=== PATIENT | male | born 1960 | race Two or more races ===

== ENCOUNTER 2020-06-23 08:58 | Emergency (ER) | payer MEDICAID, OTHER ==
[~2020-06-23] VITALS: Ht 170.2 cm; Wt 90.7 kg
[2020-06-23 09:06] VITALS: BP 144/78
[2020-06-23] MEDS ORDERED: diphenhdrAMINE HCL 25 MG CAP PO ONE (10:00)
[2020-06-23] MEDS ORDERED: methylPREDNISolone SOD SUCC 125 MG/2 ML VL IM ONE (10:00)
== END 2020-06-23 10:36 | disposition home or self-care (01) ==
LOC: ER 08:58
DX: T78.40XA Allergy, unspecified, initial encounter (principal)
CPT/HCPCS: 96372; 99283; J2930

== ENCOUNTER 2020-12-03 16:29 | Inpatient (IN) | payer MEDICAID ==
[~2020-12-03] VITALS: Ht 172.7 cm; Wt 99.4 kg
[2020-12-03] MEDS ORDERED: ASPirin 81 mg TAB PO ONE (17:30)
[2020-12-03] MEDS ORDERED: FAMOTIDINE 20 MG TAB PO ONE (17:30)
[2020-12-03 17:58] LABS: Basophils # (auto) 0 10 ^3/uL (0-0.2); Basophils % (auto) 0.5 % (0.0-2.0); Eosinophils # (auto) 0.2 10 ^3/uL (0-0.8); Eosinophils % (auto) 2.8 % (0.0-7.0); Hematocrit 43.5 % (41.0-53.0); Hemoglobin 14.8 g/dL (13.5-17.5); Lymphocytes % (auto) 29.4 % (10.0-50.0); Mean Corpuscular Hemoglobin 30.4 pg (28.0-32.0); Mean Corpuscular Volume 89.7 fL (80.0-100.0); Monocytes # (auto) 0.9 10 ^3/uL (0-1.3); Monocytes % (auto) 12.8 % (0.0-12.0); Neutrophils # (auto) 3.7 10 ^3/uL (1.6-8.6); Neutrophils % (auto) 54.5 % (37.0-80.0); Platelet Count (auto) 185 10^3/uL (140-450); Red Blood Cells 4.85 10^6/uL (4.5-5.90); Red Cell Distribution Width 13.9 % (11.8-14.3); White Blood Cell 6.7 10^3/uL (4.4-10.8)
[2020-12-03 18:13] LABS: Albumin 3.5 g/dL (3.4-5.0); BUN/Creatinine Ratio 21.4; Calcium 8.8 mg/dL (8.5-10.1); Magnesium 2.4 mg/dL (1.6-2.6); Potassium 4.1 mmol/L (3.5-5.1)
[2020-12-03 18:21] LABS: Bilirubin, Total 0.2 mg/dL (0.2-1.0); Total Protein 7.6 g/dL (6.4-8.2)
[2020-12-03 18:24] LABS: INR 0.99 (0.9-1.15)
[2020-12-03] MEDS ORDERED: NITROGLYCERIN 0.4 MG SL TAB SL ONE (18:30)
[2020-12-03] MEDS ORDERED: DOCUSATE SOD 100 MG CAP PO PRN (23:45)
[2020-12-03] MEDS ORDERED: ACETAMINOPHEN 325 MG TAB PO PRN (23:45)
[2020-12-03] MEDS ORDERED: hydrALAZINE HCL 20 MG/ML VL IV PRN (23:45)
[2020-12-03] MEDS ORDERED: NITROGLYCERIN 0.4 MG SL TAB SL PRN (23:45)
[2020-12-03] MEDS ORDERED: MORPHINE SULFATE 4 MG/ML SYR/VIAL IV PRN (23:45)
[2020-12-03] MEDS ORDERED: HYDROcodone-ACET 5/325MG TAB PO PRN (23:45)
[2020-12-03] MEDS ORDERED: MORPHINE SULF INJ 2 MG/ML SYRINGE 1ML IV PRN (23:45)
[2020-12-03] MEDS ORDERED: ONDANSETRON HCL 4 MG/2 ML VIAL IV PRN (23:45)
[2020-12-04] MEDS: SODIUM CHLOR 0.9% PF (SALINE LOCK) 10ML VIAL/SYR IV SCH ×3 (05:28→22:00)
[2020-12-04 06:09] LABS: Basophils # (auto) 0 10 ^3/uL (0-0.2); Basophils % (auto) 0.7 % (0.0-2.0); Eosinophils # (auto) 0.2 10 ^3/uL (0-0.8); Eosinophils % (auto) 3.3 % (0.0-7.0); Hematocrit 41.2 % (41.0-53.0); Hemoglobin 14.5 g/dL (13.5-17.5); Lymphocytes # (auto) 1.4 10 ^3/uL (0.4-5.4); Lymphocytes % (auto) 26.4 % (10.0-50.0); Mean Corpuscular Hemoglobin 31.4 pg (28.0-32.0); Mean Corpuscular Hgb Conc. 35.3 g/dL (32.0-36.0); Mean Corpuscular Volume 88.8 fL (80.0-100.0); Monocytes # (auto) 0.8 10 ^3/uL (0-1.3); Monocytes % (auto) 14.3 % (0.0-12.0); Neutrophils # (auto) 2.9 10 ^3/uL (1.6-8.6); Neutrophils % (auto) 55.3 % (37.0-80.0); Nucleated Red Blood Cells % 0.1 %; Platelet Count (auto) 172 10^3/uL (140-450); Red Blood Cells 4.63 10^6/uL (4.5-5.90); Red Cell Distribution Width 14.3 % (11.8-14.3); White Blood Cell 5.2 10^3/uL (4.4-10.8)
[2020-12-04 06:24] LABS: Potassium 3.6 mmol/L (3.5-5.1)
[2020-12-04 06:40] LABS: Albumin 3.3 g/dL (3.4-5.0); BUN/Creatinine Ratio 19.2; Bilirubin, Total 0.4 mg/dL (0.2-1.0); Calcium 8.6 mg/dL (8.5-10.1); Total Protein 7.1 g/dL (6.4-8.2)
[2020-12-04] MEDS ORDERED: MORPHINE SULF INJ 2 MG/ML SYRINGE 1ML IV PRN (09:30)
[2020-12-04] MEDS ORDERED: ZINC SULFATE 220mg CAP or TAB PO SCH (10:00)
[2020-12-04] MEDS ORDERED: ENOXAPARIN SOD 40 MG/0.4 ML SYRINGE SC SCH (10:00)
[2020-12-04] MEDS ORDERED: ASCORBIC ACID 500 MG TAB PO SCH (10:00)
[2020-12-04] MEDS ORDERED: CLOPIDOGREL BISULFATE 75 MG TAB PO SCH (10:00)
[2020-12-04] MEDS: ASPirin 81 mg TAB PO SCH (11:30)
[2020-12-04] MEDS: MULTIPLE VITAMIN TAB PO SCH (11:31)
[2020-12-04] MEDS: amLODIPine BESYLATE 5 MG TAB PO SCH (11:33)
[2020-12-04] MEDS: FAMOTIDINE (10MG/ML) 2ML VL IV SCH ×2 (11:35→22:00)
[2020-12-04] MEDS: ATORVASTATIN 20 MG TAB PO SCH (22:00)
[2020-12-04] MEDS: ENOXAPARIN SOD 40 MG/0.4 ML SYRINGE SC SCH (22:00)
[2020-12-05 05:12] LABS: Basophils # (auto) 0 10 ^3/uL (0-0.2); Basophils % (auto) 0.4 % (0.0-2.0); Eosinophils # (auto) 0.2 10 ^3/uL (0-0.8); Eosinophils % (auto) 2.7 % (0.0-7.0); Hematocrit 42.2 % (41.0-53.0); Hemoglobin 14.6 g/dL (13.5-17.5); Lymphocytes # (auto) 1.7 10 ^3/uL (0.4-5.4); Lymphocytes % (auto) 29.7 % (10.0-50.0); Mean Corpuscular Hemoglobin 30.8 pg (28.0-32.0); Mean Corpuscular Hgb Conc. 34.6 g/dL (32.0-36.0); Mean Corpuscular Volume 88.9 fL (80.0-100.0); Monocytes # (auto) 0.7 10 ^3/uL (0-1.3); Monocytes % (auto) 12.6 % (0.0-12.0); Neutrophils # (auto) 3.2 10 ^3/uL (1.6-8.6); Neutrophils % (auto) 54.6 % (37.0-80.0); Nucleated Red Blood Cells % 0.3 %; Platelet Count (auto) 178 10^3/uL (140-450); Red Blood Cells 4.74 10^6/uL (4.5-5.90); White Blood Cell 5.8 10^3/uL (4.4-10.8)
[2020-12-05 05:18] LABS: INR 1.01 (0.9-1.15); Partial Thromboplastin Time 30.8 sec (23.0-31.2)
[2020-12-05 05:24] LABS: Albumin 3.3 g/dL (3.4-5.0); Calcium 9.1 mg/dL (8.5-10.1)
[2020-12-05 05:27] LABS: Magnesium 2.4 mg/dL (1.6-2.6)
[2020-12-05 05:33] LABS: Bilirubin, Total 0.4 mg/dL (0.2-1.0); Phosphorus 4.4 mg/dL (2.5-4.90); Total Protein 6.8 g/dL (6.4-8.2)
[2020-12-05] MEDS: SODIUM CHLOR 0.9% PF (SALINE LOCK) 10ML VIAL/SYR IV SCH ×3 (06:15→22:22)
[2020-12-05] MEDS: ASPirin 81 mg TAB PO SCH (09:57)
[2020-12-05] MEDS: ENOXAPARIN SOD 40 MG/0.4 ML SYRINGE SC SCH ×2 (09:57→22:22)
[2020-12-05] MEDS: amLODIPine BESYLATE 5 MG TAB PO SCH (09:58)
[2020-12-05] MEDS: MULTIPLE VITAMIN TAB PO SCH (10:16)
[2020-12-05] MEDS: FAMOTIDINE (10MG/ML) 2ML VL IV SCH ×2 (10:23→22:21)
[2020-12-05 15:36] VITALS: BP 138/79
[2020-12-05] MEDS ORDERED: AMLO-489 PO (15:55)
[2020-12-05] MEDS ORDERED: DOCU-94 PO (15:55)
[2020-12-05] MEDS ORDERED: CLOP75TA70 PO (15:55)
[2020-12-05] MEDS ORDERED: HYDR50TA15 PO (15:55)
[2020-12-05] MEDS ORDERED: ESCI10TA PO (15:55)
[2020-12-05] MEDS ORDERED: LOSA-69 PO (15:55)
[2020-12-05] MEDS ORDERED: ATOR40TA52 PO (15:55)
[2020-12-05 22:00] VITALS: BP 141/75
[2020-12-05] MEDS: ATORVASTATIN 20 MG TAB PO SCH (22:22)
[2020-12-06 05:00] VITALS: BP 129/73
[2020-12-06 06:59] LABS: Basophils # (auto) 0 10 ^3/uL (0-0.2); Basophils % (auto) 0.5 % (0.0-2.0); Eosinophils # (auto) 0.1 10 ^3/uL (0-0.8); Eosinophils % (auto) 2.3 % (0.0-7.0); Hematocrit 39.9 % (41.0-53.0); Hemoglobin 13.8 g/dL (13.5-17.5); Lymphocytes # (auto) 1.6 10 ^3/uL (0.4-5.4); Lymphocytes % (auto) 26.6 % (10.0-50.0); Mean Corpuscular Hemoglobin 30.4 pg (28.0-32.0); Mean Corpuscular Hgb Conc. 34.5 g/dL (32.0-36.0); Mean Corpuscular Volume 88.1 fL (80.0-100.0); Monocytes # (auto) 0.7 10 ^3/uL (0-1.3); Monocytes % (auto) 12.1 % (0.0-12.0); Neutrophils # (auto) 3.6 10 ^3/uL (1.6-8.6); Neutrophils % (auto) 58.5 % (37.0-80.0); Nucleated Red Blood Cells % 0.1 %; Platelet Count (auto) 176 10^3/uL (140-450); Red Blood Cells 4.53 10^6/uL (4.5-5.90); Red Cell Distribution Width 13.5 % (11.8-14.3); White Blood Cell 6.1 10^3/uL (4.4-10.8)
[2020-12-06 07:08] LABS: Potassium 4.1 mmol/L (3.5-5.1)
[2020-12-06 07:20] LABS: BUN/Creatinine Ratio 18.4; Calcium 8.5 mg/dL (8.5-10.1)
[2020-12-06 08:00] VITALS: BP_SYST 123; BP_SYST 137; BP_DIAS 79; BP_DIAS 83
[2020-12-06] MEDS ORDERED: ADENOSINE 82 MG in GIVE UN-DILUTED 0 ML IV STA (08:18)
[2020-12-06 08:30] VITALS: BP 135/71
[2020-12-06] MEDS: ENOXAPARIN SOD 40 MG/0.4 ML SYRINGE SC SCH ×2 (10:00→22:00)
[2020-12-06] MEDS: MULTIPLE VITAMIN TAB PO SCH (10:00)
[2020-12-06] MEDS: ASPirin 81 mg TAB PO SCH (10:00)
[2020-12-06] MEDS: FAMOTIDINE (10MG/ML) 2ML VL IV SCH ×2 (10:00→22:00)
[2020-12-06] MEDS: amLODIPine BESYLATE 5 MG TAB PO SCH (10:00)
[2020-12-06] MEDS: SODIUM CHLOR 0.9% PF (SALINE LOCK) 10ML VIAL/SYR IV SCH ×2 (14:00→22:00)
[2020-12-06 16:00] VITALS: BP 128/74
[2020-12-06 16:37] LABS: Urine WBC None Seen /hpf (0 - 3)
[2020-12-06 17:21] LABS: Urine Bacteria NONE SEEN /hpf (None Seen); Urine Blood Negative /uL (Negative); Urine Mucus FEW (None Seen)
[2020-12-06 22:00] VITALS: BP 152/76
[2020-12-06] MEDS: ATORVASTATIN 20 MG TAB PO SCH (22:00)
[2020-12-07 05:00] VITALS: BP 133/66
[2020-12-07] MEDS: SODIUM CHLOR 0.9% PF (SALINE LOCK) 10ML VIAL/SYR IV SCH ×3 (05:34→22:21)
[2020-12-07 05:44] LABS: Basophils # (auto) 0 10 ^3/uL (0-0.2); Basophils % (auto) 0.6 % (0.0-2.0); Eosinophils # (auto) 0.1 10 ^3/uL (0-0.8); Eosinophils % (auto) 2.1 % (0.0-7.0); Hematocrit 40.7 % (41.0-53.0); Lymphocytes # (auto) 1.4 10 ^3/uL (0.4-5.4); Lymphocytes % (auto) 23.6 % (10.0-50.0); Mean Corpuscular Hemoglobin 30.5 pg (28.0-32.0); Mean Corpuscular Hgb Conc. 34.3 g/dL (32.0-36.0); Mean Corpuscular Volume 88.7 fL (80.0-100.0); Monocytes # (auto) 0.7 10 ^3/uL (0-1.3); Monocytes % (auto) 11.8 % (0.0-12.0); Neutrophils # (auto) 3.7 10 ^3/uL (1.6-8.6); Neutrophils % (auto) 61.9 % (37.0-80.0); Nucleated Red Blood Cells % 0.1 %; Platelet Count (auto) 161 10^3/uL (140-450); Red Blood Cells 4.59 10^6/uL (4.5-5.90); Red Cell Distribution Width 13.8 % (11.8-14.3)
[2020-12-07 06:06] LABS: BUN/Creatinine Ratio 19.3; Calcium 8.6 mg/dL (8.5-10.1); Potassium 4.2 mmol/L (3.5-5.1)
[2020-12-07] MEDS ORDERED: IODIXANOL 320MG/ML 100ML BTL IV ONE (07:48)
[2020-12-07] MEDS ORDERED: LIDOCAINE 2%HCL (LOCAL ANESTH.) INJ 20ML MDV ONE (07:48)
[2020-12-07] MEDS ORDERED: ANGIOMAX 250 MG VIAL IV ONE (08:06)
[2020-12-07] MEDS ORDERED: SODIUM CHL 0.9% 0 ML ONE (08:07)
[2020-12-07] MEDS ORDERED: fentaNYL CITRATE 100 MCG/2 ML VL ONE (08:07)
[2020-12-07] MEDS ORDERED: MIDAZOLAM HCL 1MG/1ML-2 ML VIAL ONE (08:07)
[2020-12-07] MEDS ORDERED: VERAPAMIL 2.5MG/ML INJ 2ML VIAL IV ONE (08:07)
[2020-12-07 08:26] VITALS: BP 125/80
[2020-12-07] MEDS ORDERED: HEPARIN SODIUM (PORCINE) 5000 UNITS/ML 1ML VIAL ONE (08:30)
[2020-12-07 10:00] VITALS: BP 137/79
[2020-12-07] MEDS: ENOXAPARIN SOD 40 MG/0.4 ML SYRINGE SC SCH ×2 (10:00→22:00)
[2020-12-07] MEDS: amLODIPine BESYLATE 5 MG TAB PO SCH (11:38)
[2020-12-07] MEDS: ASPirin 81 mg TAB PO SCH (11:38)
[2020-12-07] MEDS: MULTIPLE VITAMIN TAB PO SCH (11:38)
[2020-12-07] MEDS: FAMOTIDINE (10MG/ML) 2ML VL IV SCH ×2 (11:38→22:21)
[2020-12-07 12:45] VITALS: BP 132/79
[2020-12-07 15:50] VITALS: BP 147/69
[2020-12-07 21:21] VITALS: BP 129/66
[2020-12-07] MEDS: ATORVASTATIN 20 MG TAB PO SCH (22:19)
[2020-12-08 05:00] VITALS: BP 120/70
[2020-12-08] MEDS: SODIUM CHLOR 0.9% PF (SALINE LOCK) 10ML VIAL/SYR IV SCH ×2 (06:00→14:11)
[2020-12-08 08:00] VITALS: BP 127/76
[2020-12-08] MEDS: MULTIPLE VITAMIN TAB PO SCH (09:31)
[2020-12-08] MEDS: ENOXAPARIN SOD 40 MG/0.4 ML SYRINGE SC SCH (09:32)
[2020-12-08] MEDS: ASPirin 81 mg TAB PO SCH (09:32)
[2020-12-08] MEDS: FAMOTIDINE (10MG/ML) 2ML VL IV SCH (09:32)
[2020-12-08] MEDS: amLODIPine BESYLATE 5 MG TAB PO SCH (09:32)
== END 2020-12-08 14:37 | disposition home or self-care (01) | DRG 190 ==
LOC: ER 16:29 → TELE 23:48 → TELE-CENTR 12-05 14:49
PROVIDERS: ADMIT Nurse Practitioner Family; ATTEND Family Medicine
PROC: 4A023N7 Measurement of Cardiac Sampling and Pressure, Left Heart, Percutaneous Approach (ICD-10-PCS; principal; 2020-12-07)
PROC: B2111ZZ Fluoroscopy of Multiple Coronary Arteries using Low Osmolar Contrast (ICD-10-PCS; 2020-12-07)
PROC: B2151ZZ Fluoroscopy of Left Heart using Low Osmolar Contrast (ICD-10-PCS; 2020-12-07)
DX: I21.4 Non-ST elevation (NSTEMI) myocardial infarction (principal); E66.9 Obesity, unspecified; E44.1 Mild protein-calorie malnutrition; E78.5 Hyperlipidemia, unspecified; I11.0 Hypertensive heart disease with heart failure; I25.10 Atherosclerotic heart disease of native coronary artery without angina pectoris; I70.8 Atherosclerosis of other arteries; N50.819 Testicular pain, unspecified; N50.82 Scrotal pain; R73.03 Prediabetes; Z79.02 Long term (current) use of antithrombotics/antiplatelets; Z82.49 Family history of ischemic heart disease and other diseases of the circulatory system; Z87.891 Personal history of nicotine dependence; Z98.61 Coronary angioplasty status; Z68.33 Body mass index [BMI] 33.0-33.9, adult; Z20.822 Contact with and (suspected) exposure to COVID-19; I50.33 Acute on chronic diastolic (congestive) heart failure
CPT/HCPCS: 36415; 71045; 74176; 76775; 76870; 78452; 80048; 80053; 80061; 81001; 83735; 83880; 84100; 84443; 84484; 85025; 85610; 85730; 87086; 87088; 87186; 87426; 93005; 93017; 93306; 93458; 99152; G0378; J0153; J2250; J3490; Q9967

== ENCOUNTER 2020-12-21 15:07 | Inpatient (IN) | payer MEDICAID ==
[~2020-12-21] VITALS: Ht 172.7 cm; Wt 82.9 kg
[~2020-12-21 15:07] MED LIST: AMLO-489 PO; ATOR40TA52 PO; CLOP75TA70 PO; DOCU-94 PO; ESCI10TA PO; HYDR50TA15 PO; LOSA-69 PO
[2020-12-21] MEDS ORDERED: ASPirin 81 mg TAB PO ONE (15:30)
[2020-12-21 16:32] LABS: Basophils # (auto) 0.1 10 ^3/uL (0-0.2); Basophils % (auto) 0.9 % (0.0-2.0); Eosinophils # (auto) 0.1 10 ^3/uL (0-0.8); Eosinophils % (auto) 1.8 % (0.0-7.0); Hematocrit 43.3 % (41.0-53.0); Hemoglobin 14.9 g/dL (13.5-17.5); Lymphocytes # (auto) 1.4 10 ^3/uL (0.4-5.4); Lymphocytes % (auto) 22.6 % (10.0-50.0); Mean Corpuscular Hemoglobin 30.7 pg (28.0-32.0); Mean Corpuscular Hgb Conc. 34.5 g/dL (32.0-36.0); Mean Corpuscular Volume 89.1 fL (80.0-100.0); Monocytes # (auto) 0.7 10 ^3/uL (0-1.3); Monocytes % (auto) 11.5 % (0.0-12.0); Neutrophils # (auto) 3.8 10 ^3/uL (1.6-8.6); Neutrophils % (auto) 63.2 % (37.0-80.0); Nucleated Red Blood Cells % 0.1 %; Platelet Count (auto) 188 10^3/uL (140-450); Red Blood Cells 4.86 10^6/uL (4.5-5.90); Red Cell Distribution Width 14.2 % (11.8-14.3)
[2020-12-21 16:59] LABS: Albumin 3.7 g/dL (3.4-5.0); Calcium 9.1 mg/dL (8.5-10.1); Potassium 3.5 mmol/L (3.5-5.1)
[2020-12-21 17:04] LABS: BUN/Creatinine Ratio 23.8; Bilirubin, Total 0.4 mg/dL (0.2-1.0); Total Protein 7.7 g/dL (6.4-8.2)
[2020-12-21] MEDS ORDERED: ONDANSETRON HCL 4 MG/2 ML VIAL IV PRN (19:00)
[2020-12-21] MEDS ORDERED: ISOSORBIDE MONONITRATE ER 60 MG TAB PO ONE (19:00)
[2020-12-21] MEDS ORDERED: ACETAMINOPHEN 500 MG TAB PO PRN (19:00)
[2020-12-21] MEDS ORDERED: SODIUM CHLORIDE 0.9% 1,000 ML IV ONE (19:00)
[2020-12-21] MEDS ORDERED: HYDROcodone-ACET 5/325MG TAB PO PRN (19:00)
[2020-12-21] MEDS ORDERED: NITROGLYCERIN 0.4 MG SL TAB SL PRN (19:00)
[2020-12-21] MEDS ORDERED: MORPHINE SULF INJ 2 MG/ML SYRINGE 1ML IV PRN ×2 (19:00)
[2020-12-21] MEDS ORDERED: IOHEXOL 300 MG/ML 100ML BOTTLE IJ ONE (19:02)
[2020-12-22] VITALS (7 sets, daily range): BP systolic 116–130; BP diastolic 60–72
[2020-12-22] MEDS ORDERED: HYDR25TA4 PO (06:10)
[2020-12-22 07:23] LABS: Urine Bacteria NONE SEEN /hpf (None Seen); Urine Blood Negative /uL (Negative); Urine Specific Gravity 1.026 (1.001-1.035); Urine WBC <1 /hpf (0 - 3)
[2020-12-22] MEDS: LOSARTAN POTASSIUM 50 MG TAB PO SCH (09:58)
[2020-12-22] MEDS: CLOPIDOGREL BISULFATE 75 MG TAB PO SCH (09:59)
[2020-12-22] MEDS: ISOSORBIDE MONONITRATE ER 60 MG TAB PO SCH (09:59)
[2020-12-22] MEDS: FAMOTIDINE 20 MG TAB PO SCH (10:00)
[2020-12-22] MEDS: CITALOPRAM HYDROBR 20 MG TAB PO SCH (10:00)
[2020-12-22] MEDS ORDERED: RANOLAZINE ER 500 MG TAB PO ONE (10:30)
[2020-12-22] MEDS ORDERED: ASPirin 81 mg TAB PO ONE (10:30)
[2020-12-22] MEDS ORDERED: FUROSEMIDE 20 MG/2 ML VIAL IV ONE (11:15)
[2020-12-22 11:24] LABS: Alcohol, Urine < 3.0 mg/dL (0-10); Amphetamine Screen, Urine NEGATIVE (NEGATIVE); Barbiturate Scree,Urine NEGATIVE (NEGATIVE); Benzodiazephine Screen, Urine NEGATIVE (NEGATIVE); Cannabinoid Screen, Urine NEGATIVE (NEGATIVE); Cocaine Screen, Urine NEGATIVE (NEGATIVE); Opiate Scree,Urine NEGATIVE (NEGATIVE); Phencyclidine Screen, Urine NEGATIVE (NEGATIVE)
[2020-12-22] MEDS: RANOLAZINE ER 500 MG TAB PO SCH (21:40)
[2020-12-22] MEDS ORDERED: ATORVASTATIN 20 MG TAB PO SCH (22:00)
[2020-12-23 05:00] VITALS: BP 123/70
[2020-12-23 07:05] LABS: BUN/Creatinine Ratio 17.3; Calcium 8.9 mg/dL (8.5-10.1); Magnesium 2.3 mg/dL (1.6-2.6); Potassium 4.3 mmol/L (3.5-5.1)
[2020-12-23 08:30] VITALS: BP 135/78
[2020-12-23] MEDS ORDERED: FUROSEMIDE 20 MG/2 ML VIAL IV SCH (10:00)
[2020-12-23] MEDS ORDERED: ASPirin 81 mg TAB PO SCH (10:00)
[2020-12-23] MEDS: CLOPIDOGREL BISULFATE 75 MG TAB PO SCH (10:01)
[2020-12-23] MEDS: CITALOPRAM HYDROBR 20 MG TAB PO SCH (10:01)
[2020-12-23] MEDS: LOSARTAN POTASSIUM 50 MG TAB PO SCH (10:01)
[2020-12-23] MEDS: FAMOTIDINE 20 MG TAB PO SCH (10:01)
[2020-12-23] MEDS: RANOLAZINE ER 500 MG TAB PO SCH (10:01)
[2020-12-23] MEDS: ISOSORBIDE MONONITRATE ER 60 MG TAB PO SCH (10:02)
[2020-12-23 10:50] VITALS: BP 135/78
== END 2020-12-23 12:13 | disposition home or self-care (01) | DRG 190 ==
LOC: ER 15:07 → TELE 18:55 → TELE-CENTR 12-22 05:28
PROVIDERS: ADMIT Nurse Practitioner Acute Care; ATTEND Internal Medicine
DX: I25.119 Atherosclerotic heart disease of native coronary artery with unspecified angina pectoris (principal); I21.A1 Myocardial infarction type 2; E66.9 Obesity, unspecified; E78.5 Hyperlipidemia, unspecified; J98.11 Atelectasis; Z68.27 Body mass index [BMI] 27.0-27.9, adult; I11.9 Hypertensive heart disease without heart failure; I70.0 Atherosclerosis of aorta; Z20.822 Contact with and (suspected) exposure to COVID-19; Z79.02 Long term (current) use of antithrombotics/antiplatelets; Z79.899 Other long term (current) drug therapy; Z82.49 Family history of ischemic heart disease and other diseases of the circulatory system; Z98.61 Coronary angioplasty status
CPT/HCPCS: 36415; 71045; 71275; 80048; 80053; 80307; 81001; 83036; 83735; 83880; 84443; 84484; 85025; 87081; 87426; 96360; G0378

== ENCOUNTER 2025-03-05 20:37 | Inpatient (IN) | payer OTHER, BC, MEDICAID ==
[~2025-03-05] VITALS: Ht 172.7 cm; Wt 92.5 kg
[~2025-03-05 20:37] MED LIST changes: -AMLO-489 PO; +AMLO1TAB22 PO; +HYDR25TA4 PO; -HYDR50TA15 PO; +HYDR50TA47 PO; +LOSA-534 PO; -LOSA-69 PO
--- NOTE | 2025-03-05 21:38 | ED.PDOC ---
History of Present Illness HPI Comments 64-year-old male who came ER via EMS for high blood pressure. Patient has history of hypertension and dementia. History obtained from daughter, who thinks that patient has not been taking as prescribed his medications. Noted that his blood pressure was high at home, SBP 188 so she decided to bring patient the emergency room. Patient was given NTG while EN route. Upon arrival blood pressure was 174/86 mm Hg Chief Complaint: High Blood Pressure Time Seen by MD: 21:38 Primary Care Provider: ABILIO MORIN Reviewed Notes: Nurses Notes Allergies: Coded Allergies: No Known Drug Allergy (Verified Allergy, Unknown, 06/23/20) Home Meds Reported Medications Hydrochlorothiazide (Hydrochlorothiazide) 25 Mg Tab, 25 MG PO DAILY for 30 Days, MG 12/22/20 Docusate Sodium (Colace) 100 Mg Cap, 1 CAP PO BID, #30 CAP 12/05/20 Losartan Potassium (Losartan Potassium) 50 Mg Tab, 50 MG PO DAILY for 30 Days, MG 12/05/20 Hydralazine Hcl (Hydralazine Hcl) 50 Mg Tab, 50 MG PO TID for 30 Days, MG 12/05/20 Amlodipine Besylate (Amlodipine Besylate) 5 Mg Tab, 10 MG PO DAILY for 30 Days, MG 12/05/20 Escitalopram Oxalate (Lexapro) 10 Mg Tab, 1 TAB PO DAILY, #90 TAB 3 Refills 12/05/20 Atorvastatin Calcium (ATORVASTATIN CALCIUM) 40 Mg Tab, 1 TAB PO DAILY, #30 TAB 5 Refills 12/05/20 Clopidogrel Bisulfate (CLOPIDOGREL) 75 Mg Tab, 75 MG PO DAILY for 30 Days, MG 12/05/20 Information Source: Relative Mode of Arrival: EMS Severity: Moderate Timing: Hours Duration: Since onset Prehospital treatment: NTG Past Medical History PAST MEDICAL HISTORY: Dementia, HTN, OR Surgical History: Denies all surgeries Family History Family History: Unknown Social History Smoker: Non-Smoker Alcohol: Denies ETOH Use Drugs: Denies Drug Use Lives In: Home Unable to Obtain due to: Dementia Physical Exam General Appearance: No Apparent Distress, Normal HEENT: Normal ENT Inspection, Pharynx Normal, TMs Normal Neck: Full Range of Motion, Non-Tender, Normal, Normal Inspection Respiratory: Chest Non-Tender, Lungs Clear, No Accessory Muscle Use, No Respiratory Distress, Normal Breath Sounds Cardiovascular: No Edema, No JVD, No Murmur, No Gallop, Normal Peripheral Pulses, Regular Rate/Rhythm Breast Exam: Deferred Gastrointestinal: No Organomegaly, Non Tender, No Pulsatile Mass, Normal Bowel Sounds, Soft Genitalia: Deferred Pelvic: Deferred Rectal: Deferred Extremities: No calf tenderness, Normal capillary refill, Normal inspection, Normal range of motion, Non-tender, No pedal edema Musculoskeletal : Apperance: Normal Neurologic: Alert, interface analyst II-XII nml as Tested, No Motor Deficits, Normal Affect, Normal Mood, No Sensory Deficits Cerebellar Function: Normal Reflexes: Normal Skin: Dry, Normal Color, Warm Lymphatic: No Adenopathy Was a procedure done? Was a procedure done?: No Differential Dx Considerations may include: Anemia, electrolyte imbalance, medication noncompliance, hypertensive urgency, dementia X-Ray, Labs, Meds, VS Vital Signs Date Time Temp Pulse Resp B/P (MAP) Pulse Ox O2 Delivery O2 Flow Rate FiO2 03/05/25 21:41 96 03/05/25 21:29 98.0 74 14 159/76 (103) 94 98.0 03/05/25 20:40 76 03/05/25 20:37 97.6 46 20 174/82 (112) 97 97.6 Lab Test 03/05/25 22:40 03/05/25 21:37 03/05/25 21:30 Range/Units Troponin I High Sensitivity Pending 96 *H </=54 ng/L White Blood Count 6.3 4.4-10.8 10^3/uL Red Blood Count 4.83 4.5-5.90 10^6/uL Hemoglobin 15.0 13.5-17.5 g/dL Hematocrit 43.7 41.0-53.0 % Mean Corpuscular Volume 90.5 80.0-100.0 fL Mean Corpuscular Hemoglobin 31.0 28.0-32.0 pg Mean Corpuscular Hemoglobin Concent 34.3 32.0-36.0 g/dL Red Cell Distribution Width 14.2 11.8-14.3 % Platelet Count 171 140-450 10^3/uL Mean Platelet Volume 9.0 6.9-10.8 fL Neutrophils (%) (Auto) 65.0 37.0-80.0 % Lymphocytes (%) (Auto) 21.1 10.0-50.0 % Monocytes (%) (Auto) 10.0 0.0-12.0 % Eosinophils (%) (Auto) 3.4 0.0-7.0 % Basophils (%) (Auto) 0.5 0.0-2.0 % Neutrophils # (Auto) 4.1 1.6-8.6 10 ^3/uL Lymphocytes # (Auto) 1.3 0.4-5.4 10 ^3/uL Monocytes # (Auto) 0.6 0-1.3 10 ^3/uL Eosinophils # (Auto) 0.2 0-0.8 10 ^3/uL Basophils # (Auto) 0 0-0.2 10 ^3/uL Nucleated Red Blood Cells 0.1 % Sodium Level 138 136-145 mmol/L Potassium Level 3.9 3.5-5.1 mmol/L Chloride Level 104 98-107 mmol/L Carbon Dioxide Level 26 20-31 mmol/L Anion Gap 8 5-15 Blood Urea Nitrogen 17 9-23 mg/dL Creatinine 0.79 0.700-1.30 mg/dL Glomerular Filtration Rate Calc 100 >90 mL/min BUN/Creatinine Ratio 21.5 H 10.0-20.0 Serum Glucose 111 H 74-106 mg/dL Calcium Level 10.3 8.7-10.4 mg/dL Urine Color Colorless Yellow Urine Clarity Clear Clear Urine pH 5.5 5.0-9.0 Urine Specific [place] 1.014 1.001-1.035 Urine Protein Trace H Negative Urine Ketones Negative Negative Urine Blood Trace H Negative /uL Urine Nitrite Negative Negative Urine Bilirubin Negative Negative Urine Urobilinogen Normal Negative mg/dL Urine Leukocyte Esterase Negative Negative /uL Urine RBC 1 0 - 3 /hpf Urine Microscopic WBC < 1 0-3 /HPF Urine Squamous Epithelial Cells None seen <5 /hpf Urine Bacteria None seen None Seen /hpf Urine Glucose Normal Normal mg/dL Time of 1ST Reevaluation: 21:35 Reevaluation 1ST: Unchanged Patient Education/Counseling: Diagnosis, Treatment Family Education/Counseling: Diagnosis, Treatment Departure 1 Departure Time of Disposition: 23:27 (Patient presented with chest pain and hypertension that was concerning for possible STEMI, ACS, PE, Pneumonia, Muscle Strain, COPD, Dissection. Data: 1. I ordered and reviewed the result of at least 3 labs including a CBC, BMP, and Troponin. 2. I independently interpreted the following tests: EKG which shows sinus arrhythmia and Chest X-ray which shows benign chest.Risk:This patient has a high risk of morbidity due to further diagnostic testing or treatment and may suffer from an acute cardiac or respiratory disorder. Workup reveals concern for ACS and patient should be admitted for further workup and possible expert consultation. ) Impression: Primary Impression: Acute chest pain Additional Impressions: Hypertension Qualified Codes: I10 - Essential (primary) hypertension Hypertensive emergency Disposition: 09 ADMITTED INPATIENT Admit to: Med Surg Condition: Serious Critical Care Note Critical Care Time?: Yes (35 min-critical care time only) Critical care comment: Hypertensive urgency Authorized and Performed by: Dank Ritchie MD Total critical care time: Approximately 38 minutes Due to a high probability of clinically significant, life threatening deterioration, the patient required my highest level of preparedness to intervene emergently and I personally spent this critical care time directly and personally managing the patient. This critical care time included obtaining a history; examining the patient; pulse oximetry; ordering and review of studies; arranging urgent treatment with development of a management plan; evaluation of patient's response to treatment; frequent reassessment; and, discussions with other providers. This critical care time was performed to assess and manage the high probability of imminent, life-threatening deterioration that could result in multi-organ failure. It was exclusive of separately billable procedures and treating other patients and teaching time. Please see my other sections and the rest of the note for further information on patient assessment and treatment. Stability Stability form required: No Heart Score Heart Score: Heart Score Response (Comments) Value History Slightly Suspicious 0 EKG Repolarization Disturb 1 Age 45-64 1 Risk Factors >3 or Hx ASHD 2 Troponin 1-2 x's Normal limit 1 Total 5 I personally scribed for DANK RITCHIE MD ([email or web address]) on 03/05/25 at 21:38. Electronically submitted by Aj Dailey ([facility]). ADNK RITCHIE MD March 05, 2025 21:38
[2025-03-05 21:39] LABS: Urine Bacteria None Seen /hpf (None Seen)
[2025-03-05 22:01] LABS: Basophils # (auto) 0 10 ^3/uL (0-0.2); Basophils % (auto) 0.5 % (0.0-2.0); Chloride 104 mmol/L (98-107); Eosinophils # (auto) 0.2 10 ^3/uL (0-0.8); Eosinophils % (auto) 3.4 % (0.0-7.0); Hematocrit 43.7 % (41.0-53.0); Lymphocytes # (auto) 1.3 10 ^3/uL (0.4-5.4); Lymphocytes % (auto) 21.1 % (10.0-50.0); Mean Corpuscular Hgb Conc. 34.3 g/dL (32.0-36.0); Mean Corpuscular Volume 90.5 fL (80.0-100.0); Monocytes # (auto) 0.6 10 ^3/uL (0-1.3); Neutrophils # (auto) 4.1 10 ^3/uL (1.6-8.6); Nucleated Red Blood Cells % 0.1 %; Platelet Count (auto) 171 10^3/uL (140-450); Potassium 3.9 mmol/L (3.5-5.1); Red Blood Cells 4.83 10^6/uL (4.5-5.90); Red Cell Distribution Width 14.2 % (11.8-14.3); Sodium 138 mmol/L (136-145); White Blood Cell 6.3 10^3/uL (4.4-10.8)
[2025-03-05 22:02] LABS: Anion Gap 8 (5-15); Carbon Dioxide 26 mmol/L (20-31)
[2025-03-05 22:03] LABS: Calcium 10.3 mg/dL (8.7-10.4)
[2025-03-05 22:07] LABS: BUN/Creatinine Ratio 21.5 (10.0-20.0); Blood Urea Nitrogen 17 mg/dL (9-23)
--- NOTE | 2025-03-05 22:16 | DVH ---
CHEST RADIOGRAPH Indication: weakness Technique: Single frontal view of the chest was obtained Comparison: CHEST PORTABLE on DOS: 12/21/20 FINDINGS: Lines and Tubes: None Lungs: No focal consolidation. Pleura: No effusion. No pneumothorax. Cardiomediastinal contours: Unremarkable Bones: No acute osseous abnormality. IMPRESSION: 1. No acute cardiopulmonary disease.
[2025-03-05 22:19] LABS: Glucose 111 mg/dL (74-106)
[2025-03-05 22:32] LABS: Urine Blood TRACE /uL (Negative); Urine Clarity Clear (Clear); Urine Color Colorless (Yellow); Urine Protein, UAD TRACE (Negative); Urine Specific Gravity 1.014 (1.001-1.035); Urine Squamous Epithelial Cell None Seen /hpf (<5); Urine Urobilinogen Normal (Negative); Urine pH 5.5 (5.0-9.0)
[2025-03-05 22:37] LABS: Urine WBC < 1 /HPF (0-3)
[2025-03-05 23:00] VITALS: PULSE 82; RESP 14; O2SAT 96
[2025-03-05] MEDS: hydrALAZINE HCL 20 MG/ML VL IV ONE (23:43)
--- NOTE | 2025-03-06 00:41 | DVHHP2 ---
History of Present Illness Reason for Visit: Acute chest pain History of Present Illness The patient is a 64-year-old male with past medical history of ME, dementia, and hypertension who presented to [facility] ED for evaluation of elevated blood pressure. Daughter reports that patient has not been taking his medication as prescribed, noted elevated blood pressure at home with systolic blood pressure in the 180s. Patient was seen and evaluated in the ED, laboratory data shows WBC 6.3, platelets 171, sodium 138, potassium 3.9, BUN 17, creatinine 0.79, glucose 111, troponin 96 trending up to 100, blood pressure 174/86 trending down to 152/86, pulse 82, temperature 98.0 F, O2 saturation 96% on room air. Patient was given IV hydralazine 10 mg x 1, aspirin 325 mg p.o. x1, please see medication orders section in the computer. On my assessment, patient denied chest pain, no headache, no dizziness, no palpitations, no shortness of breath, no nausea, no vomiting, no fever, no chills. Patient was admitted for further evaluation and medical management. Past Medical History Dementia, HTN, ME Past Surgical History Denies all surgeries Family History Reviewed, noncontributory to the management of this case. Past Social History The patient lives at home, denies smoking, alcohol or illicit drugs abuse. Review of Systems Constitutional: No: Fever, Chills, Sweats, Weakness, Malaise, Other Eyes: No: Pain, Vision change, Conjunctivae inflammation, Eyelid inflammation, Other, Redness ENT: No: Ear pain, Ear discharge, Nose pain, Nose discharge, Nose congestion, Mouth pain, Mouth swelling, Throat pain, Throat swelling, Other Respiratory: No: Cough, Dry, Shortness of breath, SOB with excertion, Wheezing, Hemoptysis, Pleuritic Pain, Sputum, Wheezing, Other Cardiovascular: No: Chest Pain, Palpitations, Orthopnea, Paroxysmal Noc. Dyspnea, Edema, Lt Headedness, Other Gastrointestinal: No: Nausea, Vomiting, Abdominal Pain, Diarrhea, Constipation, Melena, Hematochezia, Other Genitourinary: No Dysuria, No Frequency, No Incontinence, No Hematuria, No Retention, No Other Musculoskeletal: No: other, neck pain, shoulder pain, arm pain, back pain, hand pain, leg pain, foot pain Skin: No: Rash, Lesions, Jaundice, Bruising, Other Neurological: No: Weakness, Numbness, Incoordination, Change in speech, Confusion, Seizures, Other Allergies: Coded Allergies: No Known Drug Allergy (Verified Allergy, Unknown, 06/23/20) Exam Vital Signs Vital Signs Date Time Temp Pulse Resp B/P (MAP) Pulse Ox O2 Delivery O2 Flow Rate FiO2 03/05/25 23:44 70 03/05/25 23:43 152/86 03/05/25 23:30 20 94 03/05/25 23:00 Room Air* 0 21 21 03/05/25 21:29 98.0 98.0 General Appearance: Alert, Oriented X3, Cooperative, No acute distress HEENT: Atraumatic, PERRLA, EOMI, Mucous membr. moist/pink Respiratory: Clear to auscultation, Normal air movement Cardiovascular: Regular rate, Normal S1, Normal S2, No murmurs Abdominal: Normal bowel sounds, Soft, No tenderness, No hepatospenomegaly, No masses Extremities: No clubbing, No cyanosis, No edema, Normal pulses, No tendernes s/swelling Skin: No rashes, No breakdown, No significant lesion Neuro: Normal gait, Normal speech, Strength at 5/5 X4 ext, Normal tone, Sensation intact, Cranial nerves 3-12 NL, Reflexes 2+ Psych/Mental Status: Mental status NL, Mood NL Labs/Xrays Labs Test 03/05/25 22:40 03/05/25 21:37 03/05/25 21:30 Range/Units Troponin I High Sensitivity 91 *H </=54 ng/L White Blood Count 6.3 4.4-10.8 10^3/uL Red Blood Count 4.83 4.5-5.90 10^6/uL Hemoglobin 15.0 13.5-17.5 g/dL Hematocrit 43.7 41.0-53.0 % Mean Corpuscular Volume 90.5 80.0-100.0 fL Mean Corpuscular Hemoglobin 31.0 28.0-32.0 pg Mean Corpuscular Hemoglobin Concent 34.3 32.0-36.0 g/dL Red Cell Distribution Width 14.2 11.8-14.3 % Platelet Count 171 140-450 10^3/uL Mean Platelet Volume 9.0 6.9-10.8 fL Neutrophils (%) (Auto) 65.0 37.0-80.0 % Lymphocytes (%) (Auto) 21.1 10.0-50.0 % Monocytes (%) (Auto) 10.0 0.0-12.0 % Eosinophils (%) (Auto) 3.4 0.0-7.0 % Basophils (%) (Auto) 0.5 0.0-2.0 % Neutrophils # (Auto) 4.1 1.6-8.6 10 ^3/uL Lymphocytes # (Auto) 1.3 0.4-5.4 10 ^3/uL Monocytes # (Auto) 0.6 0-1.3 10 ^3/uL Eosinophils # (Auto) 0.2 0-0.8 10 ^3/uL Basophils # (Auto) 0 0-0.2 10 ^3/uL Nucleated Red Blood Cells 0.1 % Sodium Level 138 136-145 mmol/L Potassium Level 3.9 3.5-5.1 mmol/L Chloride Level 104 98-107 mmol/L Carbon Dioxide Level 26 20-31 mmol/L Anion Gap 8 5-15 Blood Urea Nitrogen 17 9-23 mg/dL Creatinine 0.79 0.700-1.30 mg/dL Glomerular Filtration Rate Calc 100 >90 mL/min BUN/Creatinine Ratio 21.5 H 10.0-20.0 Serum Glucose 111 H 74-106 mg/dL Calcium Level 10.3 8.7-10.4 mg/dL Urine Color Colorless Yellow Urine Clarity Clear Clear Urine pH 5.5 5.0-9.0 Urine Specific [place] 1.014 1.001-1.035 Urine Protein Trace H Negative Urine Ketones Negative Negative Urine Blood Trace H Negative /uL Urine Nitrite Negative Negative Urine Bilirubin Negative Negative Urine Urobilinogen Normal Negative mg/dL Urine Leukocyte Esterase Negative Negative /uL Urine RBC 1 0 - 3 /hpf Urine Microscopic WBC < 1 0-3 /HPF Urine Squamous Epithelial Cells None seen <5 /hpf Urine Bacteria None seen None Seen /hpf Urine Glucose Normal Normal mg/dL PATIENT: YENNY CARPENTER ACCT: [id number] UNIT: [id number] : 1960 LOC: ER ROOM / BED: / AGE / SEX: 64 / M ADM STATUS: REG ER SERVICE 24 ORDERING PHYSICIAN: DANK VELEZ MD PROCEDURE(s): CXRP - CHEST PORTABLE REASON: weakness ORDER NUMBER(s): [id number], ACCESSION NUMBER(s): [id number] CHEST RADIOGRAPH Indication: weakness Technique: Single frontal view of the chest was obtained Comparison: CHEST PORTABLE on DOS: 12/21/20 FINDINGS: Lines and Tubes: None Lungs: No focal consolidation. Pleura: No effusion. No pneumothorax. Cardiomediastinal contours: Unremarkable Bones: No acute osseous abnormality. IMPRESSION: 1. No acute cardiopulmonary disease. Assessment/Plan Assessment/Plan Acute chest pain Elevated troponin Essential (primary) hypertension Hypertensive emergency Plan 1. Admit to telemetry unit 2. Breathing treatment 3. Pain control management 4. Management of fluids and electrolytes 5. Consultation for hospitalist 6. Diagnostic tests chest x-ray 7. DVT prophylaxis-on aspirin 8. Repeat labs CBC, CMP in a.m. 9. Continue with current medical management 10. Treatment plan discussed with patient and RN. Patient verbalized understanding. Plan discussed with: Patient, Other (RN) Problem List: (1) Acute chest pain (2) Elevated troponin (3) Essential (primary) hypertension (4) Hypertensive emergency Date of Service: March 06, 2025 Billing Provider: ELODIA MURRIETA DNP Common Visit Codes: [id number] INP/OBS CARE (HIGH) ELODIA MURRIETA DNP March 06, 2025 00:41
[2025-03-06] MEDS ORDERED: NITROGLYCERIN 0.4 MG SL TAB SL PRN (00:45)
[2025-03-06] MEDS ORDERED: ONDANSETRON HCL 4 MG/2 ML VIAL IV PRN (00:45)
[2025-03-06] MEDS ORDERED: DOCUSATE SOD 100 MG CAP PO PRN (00:45)
[2025-03-06] MEDS ORDERED: MORPHINE SULFATE INJ 2 MG/ml SYRG IV PRN (00:45)
[2025-03-06] MEDS ORDERED: ACETAMINOPHEN 325 MG TAB PO PRN (00:45)
[2025-03-06] MEDS: ASPirin 325 MG TAB PO ONE (01:45)
[2025-03-06] MEDS: SODIUM CHLOR 0.9% PF (SALINE LOCK) 10ML VIAL/SYR IV SCH (05:35)
[2025-03-06 06:11] LABS: Basophils # (auto) 0 10 ^3/uL (0-0.2); Basophils % (auto) 0.6 % (0.0-2.0); Eosinophils # (auto) 0.3 10 ^3/uL (0-0.8); Eosinophils % (auto) 3.6 % (0.0-7.0); Hematocrit 46.8 % (41.0-53.0); Hemoglobin 16.2 g/dL (13.5-17.5); Lymphocytes # (auto) 1.7 10 ^3/uL (0.4-5.4); Lymphocytes % (auto) 23.8 % (10.0-50.0); Mean Corpuscular Hemoglobin 31.2 pg (28.0-32.0); Mean Corpuscular Hgb Conc. 34.5 g/dL (32.0-36.0); Mean Corpuscular Volume 90.4 fL (80.0-100.0); Monocytes # (auto) 0.7 10 ^3/uL (0-1.3); Neutrophils # (auto) 4.3 10 ^3/uL (1.6-8.6); Nucleated Red Blood Cells % 0.2 %; Platelet Count (auto) 178 10^3/uL (140-450); Red Blood Cells 5.18 10^6/uL (4.5-5.90); Red Cell Distribution Width 14.2 % (11.8-14.3)
--- NOTE | 2025-03-06 06:27 | ECG ---
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
--- NOTE | 2025-03-06 06:27 | ECG ---
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
--- NOTE | 2025-03-06 06:29 | ECG ---
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
[2025-03-06 06:32] LABS: Alanine Aminotransferase 23 U/L (7-40); Alkaline Phosphatase 50 U/L (46-116); Anion Gap 7 (5-15); BUN/Creatinine Ratio 17.9 (10.0-20.0); Blood Urea Nitrogen 12 mg/dL (9-23); Calcium 10.3 mg/dL (8.7-10.4); Carbon Dioxide 26 mmol/L (20-31); Chloride 104 mmol/L (98-107); Glucose 90 mg/dL (74-106); Potassium 3.6 mmol/L (3.5-5.1); Sodium 137 mmol/L (136-145)
[2025-03-06 06:33] LABS: Albumin 4.2 g/dL (3.2-4.8); Aspartate Aminotransferase 19 U/L (13-40); Bilirubin, Total 0.5 mg/dL (0.2-1.0)
[2025-03-06 07:30] VITALS: PULSE 68; RESP 13; O2SAT 95
--- NOTE | 2025-03-06 09:18 | DVHINCON2 ---
TAYLA VIERA [facility] 03/06/25 0918: Date Seen: March 06, 2025 Referring Physician ROBERT Conner Reason for Consultation Elevated troponin History of Present Illness This is a 64-year-old male who presented to the emergency room via EMS with a chief complaint of uncontrolled blood pressure. The patient is a poor historian. Per daughter over the phone, the patient's blood pressure was found to be 200s/90s mmHg prompting to call 911. Upon EMS arrival they were notified the patient was still hypertensive and also bradycardic and was medicated with NTG SL. He was complaining of back and bilateral knee pain. Denies complains of dizziness, syncopal events, GUERIN, visual disturbance, chest pain, SOB, palpitations, or diaphoresis. Upon arrival to the emergency room he underwent multiple 12 lead electrocardiogram revealing a sinus rhythm with ventricular bigeminy and an associated first-degree atrioventricular block. Cardiology consulted given latest troponin level of 100 ng/L. Follows up in the outpatient setting with Dr. Gillis. Reports three prior cardiac catheterizations at [facility]. 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 He is currently on DAPT with plavix, statin, and Lopressor 25 mg QD. Significant medical history includes coronary artery disease status post PCI to the OM, hypertension, dyslipidemia, and recently diagnosed dementia. Past Medical History Past medical history reviewed. No other significant than mentioned above. Past Surgical History PCI to the OM Family History: FH: heart attack G8 MOTHER G8 FATHER Family History Family history reviewed. Social History Denies the use of illicit drugs, alcohol, or tobacco use. Allergies: Coded Allergies: No Known Drug Allergy (Verified Allergy, Unknown, 06/23/20) Home Meds Reported Medications Hydrochlorothiazide (Hydrochlorothiazide) 25 Mg Tab, 25 MG PO DAILY for 30 Days, MG 12/22/20 Docusate Sodium (Colace) 100 Mg Cap, 1 CAP PO BID, #30 CAP 12/05/20 Losartan Potassium (Losartan Potassium) 50 Mg Tab, 50 MG PO DAILY for 30 Days, MG 12/05/20 Hydralazine Hcl (Hydralazine Hcl) 50 Mg Tab, 50 MG PO TID for 30 Days, MG 12/05/20 Amlodipine Besylate (Amlodipine Besylate) 5 Mg Tab, 10 MG PO DAILY for 30 Days, MG 12/05/20 Escitalopram Oxalate (Lexapro) 10 Mg Tab, 1 TAB PO DAILY, #90 TAB 3 Refills 12/05/20 Atorvastatin Calcium (ATORVASTATIN CALCIUM) 40 Mg Tab, 1 TAB PO DAILY, #30 TAB 5 Refills 12/05/20 Clopidogrel Bisulfate (CLOPIDOGREL) 75 Mg Tab, 75 MG PO DAILY for 30 Days, MG 12/05/20 Home Meds Home medications reviewed. Current Medications Current Medications Medications (Trade) Dose Ordered Sig/Nehemias Route PRN Reason Start Time Stop Time Status Last Admin Clopidogrel Bisulfate (Plavix) 75 mg DAILY PO 03/06/25 10:00 Hydralazine HCl (Apresoline Injection) 10 mg Q6HP PRN IV SBP>150 03/06/25 00:45 Losartan Potassium (Cozaar Tablet) 50 mg DAILY PO 03/06/25 10:00 Amlodipine Besylate (Norvasc Tablet) 5 mg DAILY PO 03/06/25 10:00 Atorvastatin Calcium (Lipitor) 40 mg HS PO 03/06/25 22:00 Sodium Chloride (Saline Lock Ns) 10 ml Q8HR IV 03/06/25 06:00 03/06/25 05:35 Acetaminophen/ Hydrocodone Bitart ([place] 5/325MG Tab) 1 tab Q4HP PRN PO MODERATE PAIN (4-6 PAIN SCALE) 03/06/25 00:45 Ondansetron HCl (Zofran) 4 mg Q4HP PRN IV NAUSEA / VOMITING 03/06/25 00:45 Docusate Sodium (Colace Capsule) 100 mg BIDPRN PRN PO FOR CONSTIPATION 03/06/25 00:45 Acetaminophen (Tylenol Tablet) 650 mg Q6HP PRN PO PAIN SCALE 1-3 OR TEMP>100.4 03/06/25 00:45 Nitroglycerin (Ntrostat Sublingual) 0.4 mg Q5MINP PRN SL FOR CHEST PAIN 03/06/25 00:45 Morphine Sulfate 2 mg Q30M PRN IV FOR CHEST PAIN 03/06/25 00:45 Review of Systems Constitutional: No symptom reported Ears, Nose, & Throat: No symptom reported Eyes: No symptom reported Neurological: No symptoms reported Pulmonary/Respiratory: No symptom reported Cardiovascular: No symptom reported Gastrointestinal: No symptom reported Genitourinary: No symptom reported Musculoskeletal: Back pain/knee pain Skin: No symptom reported Psychiatric: No symptom reported Endocrine: No symptom reported Hemotologic/Lymphatic: No symptom reported Vital Signs Vital Signs Date Time Temp Pulse Resp B/P (MAP) Pulse Ox O2 Delivery O2 Flow Rate FiO2 03/06/25 07:30 98.0 68 13 124/61 (82) 95 98.0 03/06/25 07:30 Room Air* 0 21 Physical Exam General Appearance: Cooperative. Well developed. Obese. In no acute distress Head Exam: Normal inspection Neck Exam: Normal inspection. Non-tender. Normal alignment Pulmonary/Respiratory: Chest non-tender. Clear bilateral breath sounds Cardiovascular/Chest: Regular rate and rhythm. S1, S2. SR with ventricular bigeminy and 1st degree AV block. No murmurs. No JVD. Peripheral Pulses: 2+ Radial (R). 2+ Radial (L). 2+ Pedal (R). 2+ Pedal (L) Abdominal Exam: Normal bowel sounds. Soft. Nontender. No hepatospenomegaly. No masses Ankle Exam: Negative ankle edema Lower extremities: Negative lower extremity edema Neuro/Mental Status: A&O x3. Coherent but forgetful, poor historian Thoughts/Psych: Normal thought pattern. Appropriate mood and affect. Good judgement and insight Appearance: In no acute distress Skin Exam: Normal inspection. Normal color. Warm. Dry Labs/Diagnostic Data Labs Test 03/06/25 05:26 03/06/25 00:25 03/05/25 21:30 Range/Units White Blood Count 7.0 4.4-10.8 10^3/uL Red Blood Count 5.18 4.5-5.90 10^6/uL Hemoglobin 16.2 13.5-17.5 g/dL Hematocrit 46.8 41.0-53.0 % Mean Corpuscular Volume 90.4 80.0-100.0 fL Mean Corpuscular Hemoglobin 31.2 28.0-32.0 pg Mean Corpuscular Hemoglobin Concent 34.5 32.0-36.0 g/dL Red Cell Distribution Width 14.2 11.8-14.3 % Platelet Count 178 140-450 10^3/uL Mean Platelet Volume 8.8 6.9-10.8 fL Neutrophils (%) (Auto) 62.0 37.0-80.0 % Lymphocytes (%) (Auto) 23.8 10.0-50.0 % Monocytes (%) (Auto) 10.0 0.0-12.0 % Eosinophils (%) (Auto) 3.6 0.0-7.0 % Basophils (%) (Auto) 0.6 0.0-2.0 % Neutrophils # (Auto) 4.3 1.6-8.6 10 ^3/uL Lymphocytes # (Auto) 1.7 0.4-5.4 10 ^3/uL Monocytes # (Auto) 0.7 0-1.3 10 ^3/uL Eosinophils # (Auto) 0.3 0-0.8 10 ^3/uL Basophils # (Auto) 0 0-0.2 10 ^3/uL Nucleated Red Blood Cells 0.2 % Sodium Level 137 136-145 mmol/L Potassium Level 3.6 3.5-5.1 mmol/L Chloride Level 104 98-107 mmol/L Carbon Dioxide Level 26 20-31 mmol/L Anion Gap 7 5-15 Blood Urea Nitrogen 12 9-23 mg/dL Creatinine 0.67 L 0.700-1.30 mg/dL Glomerular Filtration Rate Calc 106 >90 mL/min BUN/Creatinine Ratio 17.9 10.0-20.0 Serum Glucose 90 74-106 mg/dL Calcium Level 10.3 8.7-10.4 mg/dL Total Bilirubin 0.5 0.2-1.0 mg/dL Aspartate Amino Transferase (AST) 19 13-40 U/L Alanine Aminotransferase (ALT) 23 7-40 U/L Alkaline Phosphatase 50 46-116 U/L Total Protein 7.0 5.7-8.2 g/dL Albumin 4.2 3.2-4.8 g/dL Troponin I High Sensitivity 100 *H </=54 ng/L Urine Color Colorless Yellow Urine Clarity Clear Clear Urine pH 5.5 5.0-9.0 Urine Specific [place] 1.014 1.001-1.035 Urine Protein Trace H Negative Urine Ketones Negative Negative Urine Blood Trace H Negative /uL Urine Nitrite Negative Negative Urine Bilirubin Negative Negative Urine Urobilinogen Normal Negative mg/dL Urine Leukocyte Esterase Negative Negative /uL Urine RBC 1 0 - 3 /hpf Urine Microscopic WBC < 1 0-3 /HPF Urine Squamous Epithelial Cells None seen <5 /hpf Urine Bacteria None seen None Seen /hpf Urine Glucose Normal Normal mg/dL Assessment Hypertensive emergency NSTEMI likely type 2 secondary to above Ventricular bigeminy Coronary artery disease status post PCI to the Hypertension Dyslipidemia Recently diagnosed dementia Obesity Plan/Recommendation (Dr. Gillis) Likely NSTEMI type 2 secondary to hypertensive emergency. Continue aggressive blood pressure control for a target SBP of <140 mmHg. Avoid AV regino blocking agents given first-degree atrioventricular block. Given ventricular bigeminy, initiate magnesium rider and potassium replenishment. Replete electrolytes as necessary. Given history of CAD, continue DAPT and lipid lowering agent. In the setting of an unremarkable echocardiogram, there is no further cardiac workup indicated at this time. Follow-up with Dr. Gillis as scheduled. Thank you for allowing us to participate in this patient's care. Please call if you have any questions or concerns. This medical document was created using an electronic medical record system with voice recognition software and computerized dictation system. Although this document has been carefully reviewed, there might still be some phonetic and typographical errors. Occasional wrong-word or ``sound-alike substitutions may have occurred due to the inherent limitations of voice recognition software. These areas are purely typographical due to imperfections of the software programs and do not reflect any compromise in the patient's medical care. Please read the chart carefully and recognize, using context, where these substitutions have occurred. Plan discussed with: Patient, Daughter, Other NYHA Physical activity limitations: NA Date of Service: March 06, 2025 Billing Provider: TAYLA VIERA [employer] Cardiology Common Codes: [id number] INP/OBS CARE (High) AUBREY GILLIS MD 03/06/25 1247: Family History: FH: heart attack G8 MOTHER G8 FATHER Allergies: Coded Allergies: No Known Drug Allergy (Verified Allergy, Unknown, 06/23/20) Home Meds Reported Medications Hydrochlorothiazide (Hydrochlorothiazide) 25 Mg Tab, 25 MG PO DAILY for 30 Days, MG 12/22/20 Docusate Sodium (Colace) 100 Mg Cap, 1 CAP PO BID, #30 CAP 12/05/20 Losartan Potassium (Losartan Potassium) 50 Mg Tab, 50 MG PO DAILY for 30 Days, MG 12/05/20 Hydralazine Hcl (Hydralazine Hcl) 50 Mg Tab, 50 MG PO TID for 30 Days, MG 12/05/20 Amlodipine Besylate (Amlodipine Besylate) 5 Mg Tab, 10 MG PO DAILY for 30 Days, MG 12/05/20 Escitalopram Oxalate (Lexapro) 10 Mg Tab, 1 TAB PO DAILY, #90 TAB 3 Refills 12/05/20 Atorvastatin Calcium (ATORVASTATIN CALCIUM) 40 Mg Tab, 1 TAB PO DAILY, #30 TAB 5 Refills 12/05/20 Clopidogrel Bisulfate (CLOPIDOGREL) 75 Mg Tab, 75 MG PO DAILY for 30 Days, MG 12/05/20 Plan/Recommendation pt sees me in [facility] had cath with ri 2019 and 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
[2025-03-06] MEDS: CLOPIDOGREL BISULFATE 75 MG TAB PO SCH (10:07)
[2025-03-06] MEDS: amLODIPine BESYLATE 5 MG TAB PO SCH (10:08)
[2025-03-06] MEDS: LOSARTAN POTASSIUM 50 MG TAB PO SCH (10:08)
[2025-03-06] MEDS: POTASSIUM CHL 20 Meq TABLET PO ONE (10:10)
[2025-03-06] MEDS: MAGNESIUM SULFATE 1GM/100ML 100 ML IV ONE (10:11)
--- NOTE | 2025-03-06 12:23 | DVHPN2 ---
Reviewed: Care Plan, H&P, Labs, Medications, Previous Orders, Radiology Changes from previous H/P or p: No Changes Eyes: No Pain, No Vision change, No Conjunctivae inflammation, No Eyelid inflammation, No Other, No Redness ENT: No Ear pain, No Ear discharge, No Nose pain, No Nose discharge, No Nose congestion, No Mouth pain, No Mouth swelling, No Throat pain, No Throat swelling, No Other Cardiovascular: No Chest Pain, No Palpitations, No Orthopnea, No Paroxysmal Noc. Dyspnea, No Edema, No Lt Headedness, No Other Respiratory: No Cough, No Dry, No Shortness of breath, No SOB with excertion, No Wheezing, No Hemoptysis, No Pleuritic Pain, No Sputum, No Other Gastrointestinal: No Nausea, No Vomiting, No Abdominal Pain, No Diarrhea, No Constipation, No Melena, No Hematochezia, No Other Genitourinary: No Dysuria, No Frequency, No Incontinence, No Hematuria, No Retention, No Other Musculoskeletal: No other, No neck pain, No shoulder pain, No arm pain, No back pain, No hand pain, No leg pain, No foot pain Skin: No Rash, No Lesions, No Jaundice, No Bruising, No Other Objective Vitals Vital Signs Date Time Temp Pulse Resp B/P (MAP) Pulse Ox O2 Delivery O2 Flow Rate FiO2 03/06/25 10:08 142/79 03/06/25 10:00 72 13 96 03/06/25 07:30 98.0 98.0 03/06/25 07:30 Room Air* 0 21 Medications Current Medications Medications Dose Ordered Sig/Nehemias Route Start Time Stop Time Status Last Admin Dose Admin Clopidogrel Bisulfate 75 mg DAILY PO 03/06/25 10:00 03/06/25 10:07 75 MG Hydralazine HCl 10 mg Q6HP PRN IV 03/06/25 00:45 Losartan Potassium 50 mg DAILY PO 03/06/25 10:00 03/06/25 10:08 50 MG Amlodipine Besylate 5 mg DAILY PO 03/06/25 10:00 03/06/25 10:08 5 MG Atorvastatin Calcium 40 mg HS PO 03/06/25 22:00 Sodium Chloride 10 ml Q8HR IV 03/06/25 06:00 03/06/25 05:35 10 ML Acetaminophen/ Hydrocodone Bitart 1 tab Q4HP PRN PO 03/06/25 00:45 Ondansetron HCl 4 mg Q4HP PRN IV 03/06/25 00:45 Docusate Sodium 100 mg BIDPRN PRN PO 03/06/25 00:45 Acetaminophen 650 mg Q6HP PRN PO 03/06/25 00:45 Nitroglycerin 0.4 mg Q5MINP PRN SL 03/06/25 00:45 Morphine Sulfate 2 mg Q30M PRN IV 03/06/25 00:45 Aspirin 81 mg DAILY PO 03/07/25 10:00 Laboratory Results Laboratory Tests 03/06/25 05:26 Chemistry Test 03/05/25 21:37 03/06/25 05:26 Calcium Level 10.3 mg/dL (8.7-10.4) 10.3 mg/dL (8.7-10.4) Albumin 4.2 g/dL (3.2-4.8) Magnesium Level 2.0 mg/dL (1.6-2.6) Total Protein 7.0 g/dL (5.7-8.2) LFT Test 03/06/25 05:26 Alanine Aminotransferase (ALT) 23 U/L (7-40) Alkaline Phosphatase 50 U/L (46-116) Aspartate Amino Transferase (AST) 19 U/L (13-40) Total Bilirubin 0.5 mg/dL (0.2-1.0) HgA1c, TSH Test 03/06/25 05:26 Thyroid Stimulating Hormone (TSH) 2.27 uIU/mL (0.55-4.78) Urinalysis Test 03/05/25 21:30 Urine Color Colorless (Yellow) Urine Clarity Clear (Clear) Urine pH 5.5 (5.0-9.0) Urine Specific [place] 1.014 (1.001-1.035) Urine Protein Trace (Negative) H Urine Ketones Negative (Negative) Urine Blood Trace /uL (Negative) H Urine Nitrite Negative (Negative) Urine Bilirubin Negative (Negative) Urine Urobilinogen Normal mg/dL (Negative) Urine Leukocyte Esterase Negative /uL (Negative) Urine RBC 1 /hpf (0 - 3) Urine Microscopic WBC < 1 /HPF (0-3) Urine Squamous Epithelial Cells None seen /hpf (<5) Urine Bacteria None seen /hpf (None Seen) Urine Glucose Normal mg/dL (Normal) Labs and/or images reviewed: Labs reviewed by me, Image(s) reviewed by me Assessment/Plan Assessment/Plan Hypertensive emergency: Cardiology consult appreciated NSTEMI likely type 2 secondary to above Ventricular bigeminy Coronary artery disease status post PCI to the OM Hypertension Dyslipidemia Recently diagnosed dementia Obesity Patient is hospice revoked Patient is full code Advanced care planning time 20 minutes Time spent 70 minutes Plan discussed with: Patient Date of Service: March 06, 2025 Billing Provider: JESSICA MARIA MD Common Visit Codes: [id number] CARE 30-74 MIN JESSICA MARIA MD March 06, 2025 12:23
[2025-03-06 17:24] VITALS: BP 157/80; PULSE 55; RESP 16; TEMP 97.7; O2SAT 95
[2025-03-06 17:36] VITALS: BP 157/80; PULSE 55; RESP 16; TEMP 97.7; O2SAT 95
[2025-03-06] MEDS ORDERED: AMLO1TAB23 PO (17:50)
[2025-03-06] MEDS ORDERED: SERT25TA28 PO (17:50)
[2025-03-06] MEDS ORDERED: ASPI-325 PO (17:53)
[2025-03-06] MEDS ORDERED: PANT40T PO (17:53)
[2025-03-06] MEDS: hydrALAZINE HCL 20 MG/ML VL IV PRN (18:46)
[2025-03-06 20:00] VITALS: PULSE 69; PULSE 80; RESP 17; O2SAT 96
[2025-03-06 21:00] VITALS: BP 125/68; PULSE 69; RESP 17; TEMP 98.5; O2SAT 96
[2025-03-06] MEDS: ATORVASTATIN 20 MG TAB PO SCH (22:12)
[2025-03-07] VITALS (8 sets, daily range): BP systolic 128–147; BP diastolic 67–77; PULSE 56–84; RESP 16–18; TEMP 97.7–98.3; O2SAT 94–96
[2025-03-07 05:15] LABS: Basophils # (auto) 0 10 ^3/uL (0-0.2); Basophils % (auto) 0.4 % (0.0-2.0); Eosinophils # (auto) 0.2 10 ^3/uL (0-0.8); Lymphocytes # (auto) 1.4 10 ^3/uL (0.4-5.4); Lymphocytes % (auto) 18.6 % (10.0-50.0); Mean Corpuscular Hemoglobin 30.8 pg (28.0-32.0); Mean Corpuscular Hgb Conc. 33.9 g/dL (32.0-36.0); Mean Corpuscular Volume 90.7 fL (80.0-100.0); Monocytes # (auto) 0.7 10 ^3/uL (0-1.3); Monocytes % (auto) 8.8 % (0.0-12.0); Neutrophils # (auto) 5.2 10 ^3/uL (1.6-8.6); Neutrophils % (auto) 69.2 % (37.0-80.0); Nucleated Red Blood Cells % 0.1 %; Platelet Count (auto) 188 10^3/uL (140-450); Red Blood Cells 5.51 10^6/uL (4.5-5.90); Red Cell Distribution Width 14.2 % (11.8-14.3); White Blood Cell 7.5 10^3/uL (4.4-10.8)
[2025-03-07 05:28] LABS: Alanine Aminotransferase 23 U/L (7-40); Albumin 4.2 g/dL (3.2-4.8); Alkaline Phosphatase 53 U/L (46-116); Anion Gap 10 (5-15); Aspartate Aminotransferase 17 U/L (13-40); BUN/Creatinine Ratio 17.9 (10.0-20.0); Blood Urea Nitrogen 15 mg/dL (9-23); Carbon Dioxide 24 mmol/L (20-31); Chloride 103 mmol/L (98-107); Glucose 101 mg/dL (74-106); Potassium 4.3 mmol/L (3.5-5.1); Sodium 137 mmol/L (136-145)
[2025-03-07 05:29] LABS: Bilirubin, Total 0.6 mg/dL (0.2-1.0); Calcium 10.5 mg/dL (8.7-10.4)
--- NOTE | 2025-03-07 09:51 | DVHPN2 ---
Reviewed: Care Plan, H&P, Labs, Medications, Previous Orders, Radiology Changes from previous H/P or p: No Changes Eyes: No Pain, No Vision change, No Conjunctivae inflammation, No Eyelid inflammation, No Other, No Redness ENT: No Ear pain, No Ear discharge, No Nose pain, No Nose discharge, No Nose congestion, No Mouth pain, No Mouth swelling, No Throat pain, No Throat swelling, No Other Cardiovascular: No Chest Pain, No Palpitations, No Orthopnea, No Paroxysmal Noc. Dyspnea, No Edema, No Lt Headedness, No Other Respiratory: No Cough, No Dry, No Shortness of breath, No SOB with excertion, No Wheezing, No Hemoptysis, No Pleuritic Pain, No Sputum, No Other Gastrointestinal: No Nausea, No Vomiting, No Abdominal Pain, No Diarrhea, No Constipation, No Melena, No Hematochezia, No Other Genitourinary: No Dysuria, No Frequency, No Incontinence, No Hematuria, No Retention, No Other Musculoskeletal: No other, No neck pain, No shoulder pain, No arm pain, No back pain, No hand pain, No leg pain, No foot pain Skin: No Rash, No Lesions, No Jaundice, No Bruising, No Other Objective Vitals Vital Signs Date Time Temp Pulse Resp B/P (MAP) Pulse Ox O2 Delivery O2 Flow Rate FiO2 03/07/25 09:00 98.0 69 16 128/71 (90) 96 98.0 03/06/25 20:00 Room Air* 0 21 Intake/Output Intake and Output 03/07/25 07:00 Intake Total 900 ml Output Total 550 ml Balance 350 ml Intake Oral 800 ml IV Total 100 ml Output Urine Total 550 ml Medications Current Medications Medications Dose Ordered Sig/Nehemias Route Start Time Stop Time Status Last Admin Dose Admin Clopidogrel Bisulfate 75 mg DAILY PO 03/06/25 10:00 03/06/25 10:07 75 MG Hydralazine HCl 10 mg Q6HP PRN IV 03/06/25 00:45 03/06/25 18:46 10 MG Losartan Potassium 50 mg DAILY PO 03/06/25 10:00 03/06/25 10:08 50 MG Amlodipine Besylate 5 mg DAILY PO 03/06/25 10:00 03/06/25 10:08 5 MG Atorvastatin Calcium 40 mg HS PO 03/06/25 22:00 03/06/25 22:12 40 MG Sodium Chloride 10 ml Q8HR IV 03/06/25 06:00 03/07/25 05:23 10 ML Acetaminophen/ Hydrocodone Bitart 1 tab Q4HP PRN PO 03/06/25 00:45 Ondansetron HCl 4 mg Q4HP PRN IV 03/06/25 00:45 Docusate Sodium 100 mg BIDPRN PRN PO 03/06/25 00:45 Acetaminophen 650 mg Q6HP PRN PO 03/06/25 00:45 Nitroglycerin 0.4 mg Q5MINP PRN SL 03/06/25 00:45 Morphine Sulfate 2 mg Q30M PRN IV 03/06/25 00:45 Aspirin 81 mg DAILY PO 03/07/25 10:00 Laboratory Results Laboratory Tests 03/07/25 04:29 Chemistry Test 03/07/25 04:29 Albumin 4.2 g/dL (3.2-4.8) Calcium Level 10.5 mg/dL (8.7-10.4) H Total Protein 7.0 g/dL (5.7-8.2) LFT Test 03/07/25 04:29 Alanine Aminotransferase (ALT) 23 U/L (7-40) Alkaline Phosphatase 53 U/L (46-116) Aspartate Amino Transferase (AST) 17 U/L (13-40) Total Bilirubin 0.6 mg/dL (0.2-1.0) Urinalysis Test 03/05/25 21:30 Urine Color Colorless (Yellow) Urine Clarity Clear (Clear) Urine pH 5.5 (5.0-9.0) Urine Specific [place] 1.014 (1.001-1.035) Urine Protein Trace (Negative) H Urine Ketones Negative (Negative) Urine Blood Trace /uL (Negative) H Urine Nitrite Negative (Negative) Urine Bilirubin Negative (Negative) Urine Urobilinogen Normal mg/dL (Negative) Urine Leukocyte Esterase Negative /uL (Negative) Urine RBC 1 /hpf (0 - 3) Urine Microscopic WBC < 1 /HPF (0-3) Urine Squamous Epithelial Cells None seen /hpf (<5) Urine Bacteria None seen /hpf (None Seen) Urine Glucose Normal mg/dL (Normal) Labs and/or images reviewed: Labs reviewed by me, Image(s) reviewed by me Assessment/Plan Assessment/Plan Hypertensive emergency: Cardiology consult appreciated NSTEMI likely type 2 secondary to above Ventricular bigeminy Coronary artery disease status post PCI to the OM Hypertension Dyslipidemia Recently diagnosed dementia Obesity Patient is hospice revoked Patient is full code Advanced care planning time 20 minutes Time spent 50 minutes Patient's daughter Patti [phone] at bedside and does not want patient to go back on hospice requesting home health Plan discussed with: Patient Date of Service: March 07, 2025 Billing Provider: JESSICA MARIA MD Common Visit Codes: [id number] INP/OBS CARE(HIGH) JESSICA MARIA MD March 07, 2025 09:51
[2025-03-07] MEDS: ASPirin 81 mg TAB PO SCH (10:15)
--- NOTE | 2025-03-07 12:36 | DVHSR ---
APPROVED REPORT EXAM: Two-dimensional and M-mode echocardiogram with Doppler and color Doppler. Blood Pressure: 142/79 mmHg INDICATION Hypertension CAD RISK FACTORS Height: 68, Weight: 180 DIMENSIONS LVDd5.5 (3.8-5.7cm)LA (2D)4.3 (1.9-4.0cm)Aortic Root3.5 (2.0-3.7cm) LVDs3.9 (2.5-4.0cm)LA (MM) (1.9-4.0cm)Aortic Cusp Exc1.5 (1.5-2.0cm) EF (%) 54.0 (55-70%)Rt. Atrium3.8 (1.9-4.0cm)Asc. Aorta cm IVSd1.1 (0.7-1.1cm)RV (D) (1.8-2.4cm) PWd1.4 (0.7-1.1cm) Mitral Valve MitralMitral Stenosis E wave0.92m/sMV Mean GR.1mmHg A wave0.93m/sMV Peak GR.49mmHg E/A ratio1.02D MVAcm2 DECEL [id number] 1/2 [id number] IVRTmsDop MVA2.11cm2 Aortic Valve Aortic ValveAortic Stenosis V10.75m/Jr Mean GR.6mmHg V21.65m/Jr Peak GR.11mmHg LVOT Diameter2.1 (1.8-2.4cm)Doppler AVA1.57cm2 Tricuspid Valve TR Velocity2.51m/s [id number] Conclusion lvef 55% normal rv function left atrium enlarged moderate no severe valve abnormalities noted
[2025-03-07] MEDS: HYDROcodone-ACET 5/325MG TAB PO PRN (18:18)
[2025-03-08] VITALS (11 sets, daily range): BP systolic 130–176; BP diastolic 69–89; PULSE 60–82; RESP 16–20; TEMP 97.6–98.4; O2SAT 94–97
[2025-03-08 07:05] LABS: Chloride 106 mmol/L (98-107); Potassium 3.9 mmol/L (3.5-5.1); Sodium 139 mmol/L (136-145)
[2025-03-08 07:06] LABS: Anion Gap 8 (5-15); Calcium 9.9 mg/dL (8.7-10.4); Carbon Dioxide 25 mmol/L (20-31)
[2025-03-08 07:11] LABS: BUN/Creatinine Ratio 22.2 (10.0-20.0); Blood Urea Nitrogen 18 mg/dL (9-23); Glucose 92 mg/dL (74-106)
--- NOTE | 2025-03-08 10:43 | DVHPN2 ---
Reviewed: Care Plan, H&P, Labs, Medications, Previous Orders, Radiology Changes from previous H/P or p: No Changes Eyes: No Pain, No Vision change, No Conjunctivae inflammation, No Eyelid inflammation, No Other, No Redness ENT: No Ear pain, No Ear discharge, No Nose pain, No Nose discharge, No Nose congestion, No Mouth pain, No Mouth swelling, No Throat pain, No Throat swelling, No Other Cardiovascular: No Chest Pain, No Palpitations, No Orthopnea, No Paroxysmal Noc. Dyspnea, No Edema, No Lt Headedness, No Other Respiratory: No Cough, No Dry, No Shortness of breath, No SOB with excertion, No Wheezing, No Hemoptysis, No Pleuritic Pain, No Sputum, No Other Gastrointestinal: No Nausea, No Vomiting, No Abdominal Pain, No Diarrhea, No Constipation, No Melena, No Hematochezia, No Other Genitourinary: No Dysuria, No Frequency, No Incontinence, No Hematuria, No Retention, No Other Musculoskeletal: No other, No neck pain, No shoulder pain, No arm pain, No back pain, No hand pain, No leg pain, No foot pain Skin: No Rash, No Lesions, No Jaundice, No Bruising, No Other Objective Vitals Vital Signs Date Time Temp Pulse Resp B/P (MAP) Pulse Ox O2 Delivery O2 Flow Rate FiO2 03/08/25 09:00 97.6 75 16 144/72 (96) 95 97.6 03/08/25 07:30 Room Air* 0 21 Intake/Output Intake and Output 03/08/25 07:00 Intake Total 1600 ml Balance 1600 ml Intake Oral 1600 ml # Voids 5 # Bowel Movements 4 Medications Current Medications Medications Dose Ordered Sig/Nehemias Route Start Time Stop Time Status Last Admin Dose Admin Clopidogrel Bisulfate 75 mg DAILY PO 03/06/25 10:00 03/08/25 08:40 75 MG Hydralazine HCl 10 mg Q6HP PRN IV 03/06/25 00:45 03/08/25 01:23 10 MG Losartan Potassium 50 mg DAILY PO 03/06/25 10:00 03/08/25 08:41 50 MG Amlodipine Besylate 5 mg DAILY PO 03/06/25 10:00 03/08/25 08:40 5 MG Atorvastatin Calcium 40 mg HS PO 03/06/25 22:00 03/07/25 22:32 40 MG Sodium Chloride 10 ml Q8HR IV 03/06/25 06:00 03/08/25 06:05 10 ML Acetaminophen/ Hydrocodone Bitart 1 tab Q4HP PRN PO 03/06/25 00:45 03/07/25 18:18 1 TAB Ondansetron HCl 4 mg Q4HP PRN IV 03/06/25 00:45 Docusate Sodium 100 mg BIDPRN PRN PO 03/06/25 00:45 Acetaminophen 650 mg Q6HP PRN PO 03/06/25 00:45 Nitroglycerin 0.4 mg Q5MINP PRN SL 03/06/25 00:45 Morphine Sulfate 2 mg Q30M PRN IV 03/06/25 00:45 Aspirin 81 mg DAILY PO 03/07/25 10:00 03/08/25 08:40 81 MG Laboratory Results Laboratory Tests 03/07/25 04:29 03/08/25 05:46 Chemistry Test 03/08/25 05:46 Calcium Level 9.9 mg/dL (8.7-10.4) Urinalysis Test 03/05/25 21:30 Urine Color Colorless (Yellow) Urine Clarity Clear (Clear) Urine pH 5.5 (5.0-9.0) Urine Specific [place] 1.014 (1.001-1.035) Urine Protein Trace (Negative) H Urine Ketones Negative (Negative) Urine Blood Trace /uL (Negative) H Urine Nitrite Negative (Negative) Urine Bilirubin Negative (Negative) Urine Urobilinogen Normal mg/dL (Negative) Urine Leukocyte Esterase Negative /uL (Negative) Urine RBC 1 /hpf (0 - 3) Urine Microscopic WBC < 1 /HPF (0-3) Urine Squamous Epithelial Cells None seen /hpf (<5) Urine Bacteria None seen /hpf (None Seen) Urine Glucose Normal mg/dL (Normal) Labs and/or images reviewed: Labs reviewed by me, Image(s) reviewed by me Assessment/Plan Assessment/Plan Hypertensive emergency: Cardiology consult appreciated NSTEMI likely type 2 secondary to above Ventricular bigeminy Coronary artery disease status post PCI to the OM status post left heart catheterization by Dr. Estrada 2019, total occlusion right coronary artery, stent patent Dr. Estrada advised outpatient follow up Hypertension Dyslipidemia Recently diagnosed dementia Obesity Patient is hospice revoked Patient is full code Advanced care planning time 20 minutes Time spent 50 minutes Patient's daughter Patti [phone] at bedside and does not want patient to go back on hospice requesting home health Will DC home on home health Sunday Plan discussed with: Patient Date of Service: March 08, 2025 Billing Provider: JESSICA MARIA MD Common Visit Codes: [id number] INP/OBS CARE(HIGH) JESSICA MARIA MD March 08, 2025 10:43
[2025-03-08] MEDS: hydrALAZINE HCL 10 MG TAB PO SCH (15:29)
[2025-03-09 01:00] VITALS: BP 133/72; PULSE 62; RESP 18; TEMP 98; O2SAT 96
[2025-03-09 05:00] VITALS: BP 133/72; PULSE 70; RESP 18; TEMP 98; O2SAT 96
[2025-03-09 08:00] VITALS: PULSE 64
[2025-03-09 09:00] VITALS: BP 142/74; PULSE 71; RESP 16; TEMP 97.7; O2SAT 97
--- NOTE | 2025-03-09 11:25 | DVHPN2 ---
Reviewed: Care Plan, H&P, Labs, Medications, Previous Orders, Radiology Changes from previous H/P or p: No Changes Eyes: No Pain, No Vision change, No Conjunctivae inflammation, No Eyelid inflammation, No Other, No Redness ENT: No Ear pain, No Ear discharge, No Nose pain, No Nose discharge, No Nose congestion, No Mouth pain, No Mouth swelling, No Throat pain, No Throat swelling, No Other Cardiovascular: No Chest Pain, No Palpitations, No Orthopnea, No Paroxysmal Noc. Dyspnea, No Edema, No Lt Headedness, No Other Respiratory: No Cough, No Dry, No Shortness of breath, No SOB with excertion, No Wheezing, No Hemoptysis, No Pleuritic Pain, No Sputum, No Other Gastrointestinal: No Nausea, No Vomiting, No Abdominal Pain, No Diarrhea, No Constipation, No Melena, No Hematochezia, No Other Genitourinary: No Dysuria, No Frequency, No Incontinence, No Hematuria, No Retention, No Other Musculoskeletal: No other, No neck pain, No shoulder pain, No arm pain, No back pain, No hand pain, No leg pain, No foot pain Skin: No Rash, No Lesions, No Jaundice, No Bruising, No Other Objective Vitals Vital Signs Date Time Temp Pulse Resp B/P (MAP) Pulse Ox O2 Delivery O2 Flow Rate FiO2 03/09/25 09:00 97.7 71 16 142/74 (96) 97 97.7 03/09/25 08:00 Room Air* 0 21 Intake/Output Intake and Output 03/09/25 07:00 Intake Total 700 ml Output Total 650 ml Balance 50 ml Intake Oral 700 ml Output Urine Total 650 ml # Voids 4 # Bowel Movements 1 Medications Current Medications Medications Dose Ordered Sig/Nehemias Route Start Time Stop Time Status Last Admin Dose Admin Clopidogrel Bisulfate 75 mg DAILY PO 03/06/25 10:00 03/09/25 08:25 75 MG Hydralazine HCl 10 mg Q6HP PRN IV 03/06/25 00:45 03/08/25 17:51 10 MG Losartan Potassium 50 mg DAILY PO 03/06/25 10:00 03/09/25 08:24 50 MG Amlodipine Besylate 5 mg DAILY PO 03/06/25 10:00 03/09/25 08:24 5 MG Atorvastatin Calcium 40 mg HS PO 03/06/25 22:00 03/08/25 22:19 40 MG Sodium Chloride 10 ml Q8HR IV 03/06/25 06:00 03/09/25 05:31 10 ML Acetaminophen/ Hydrocodone Bitart 1 tab Q4HP PRN PO 03/06/25 00:45 03/08/25 18:14 1 TAB Ondansetron HCl 4 mg Q4HP PRN IV 03/06/25 00:45 Docusate Sodium 100 mg BIDPRN PRN PO 03/06/25 00:45 Acetaminophen 650 mg Q6HP PRN PO 03/06/25 00:45 Nitroglycerin 0.4 mg Q5MINP PRN SL 03/06/25 00:45 Morphine Sulfate 2 mg Q30M PRN IV 03/06/25 00:45 Aspirin 81 mg DAILY PO 03/07/25 10:00 03/09/25 08:24 81 MG Hydralazine HCl 10 mg Q8HR PO 03/08/25 14:00 03/09/25 05:31 10 MG Laboratory Results Laboratory Tests 03/07/25 04:29 03/08/25 05:46 Urinalysis Test 03/05/25 21:30 Urine Color Colorless (Yellow) Urine Clarity Clear (Clear) Urine pH 5.5 (5.0-9.0) Urine Specific Raven 1.014 (1.001-1.035) Urine Protein Trace (Negative) H Urine Ketones Negative (Negative) Urine Blood Trace /uL (Negative) H Urine Nitrite Negative (Negative) Urine Bilirubin Negative (Negative) Urine Urobilinogen Normal mg/dL (Negative) Urine Leukocyte Esterase Negative /uL (Negative) Urine RBC 1 /hpf (0 - 3) Urine Microscopic WBC < 1 /HPF (0-3) Urine Squamous Epithelial Cells None seen /hpf (<5) Urine Bacteria None seen /hpf (None Seen) Urine Glucose Normal mg/dL (Normal) Labs and/or images reviewed: Labs reviewed by me, Image(s) reviewed by me Assessment/Plan Assessment/Plan Hypertensive emergency: Cardiology consult appreciated NSTEMI likely type 2 secondary to above Ventricular bigeminy Coronary artery disease status post PCI to the OM status post left heart catheterization by Dr. Estrada 2019, total occlusion right coronary artery, stent patent Dr. Estrada advised outpatient follow up Hypertension Dyslipidemia Recently diagnosed dementia Obesity Patient is hospice revoked Per Family wishes the patient is being discharged home on home health Plan discussed with: Patient My Orders Orders - JESSICA MARIA MD Procedure Category Date Status Time Hydralazine Hcl PHA 03/08/25 In Process Tablet (Apresoline 14:00 Date of Service: March 09, 2025 Billing Provider: JESSICA MARIA MD Common Visit Codes: [id number] INP/OBS CARE(HIGH) JESSICA MARIA MD March 09, 2025 11:25
--- NOTE | 2025-03-09 11:39 | DVHDS2 ---
Discharge Summary Date of Admission March 06, 2025 at 00:34 Date of Discharge: March 09, 2025 Admitting Diagnosis Uncontrolled high blood pressure and shortness of breath Wounds: None Labs/Diagnostic Data: Laboratory Results Test 03/08/25 05:46 03/07/25 04:29 03/06/25 05:26 03/06/25 00:25 Sodium Level 139 mmol/L (136-145) Potassium Level 3.9 mmol/L (3.5-5.1) Chloride Level 106 mmol/L (98-107) Carbon Dioxide Level 25 mmol/L (20-31) Anion Gap 8 (5-15) Blood Urea Nitrogen 18 mg/dL (9-23) Creatinine 0.81 mg/dL (0.700-1.30) Glomerular Filtration Rate Calc 100 mL/min (>90) BUN/Creatinine Ratio 22.2 (10.0-20.0) Serum Glucose 92 mg/dL (74-106) Calcium Level 9.9 mg/dL (8.7-10.4) White Blood Count 7.5 10^3/uL (4.4-10.8) Red Blood Count 5.51 10^6/uL (4.5-5.90) Hemoglobin 17.0 g/dL (13.5-17.5) Hematocrit 50.0 % (41.0-53.0) Mean Corpuscular Volume 90.7 fL (80.0-100.0) Mean Corpuscular Hemoglobin 30.8 pg (28.0-32.0) Mean Corpuscular Hemoglobin Concent 33.9 g/dL (32.0-36.0) Red Cell Distribution Width 14.2 % (11.8-14.3) Platelet Count 188 10^3/uL (140-450) Mean Platelet Volume 8.9 fL (6.9-10.8) Neutrophils (%) (Auto) 69.2 % (37.0-80.0) Lymphocytes (%) (Auto) 18.6 % (10.0-50.0) Monocytes (%) (Auto) 8.8 % (0.0-12.0) Eosinophils (%) (Auto) 3.0 % (0.0-7.0) Basophils (%) (Auto) 0.4 % (0.0-2.0) Neutrophils # (Auto) 5.2 10 ^3/uL (1.6-8.6) Lymphocytes # (Auto) 1.4 10 ^3/uL (0.4-5.4) Monocytes # (Auto) 0.7 10 ^3/uL (0-1.3) Eosinophils # (Auto) 0.2 10 ^3/uL (0-0.8) Basophils # (Auto) 0 10 ^3/uL (0-0.2) Nucleated Red Blood Cells 0.1 % Total Bilirubin 0.6 mg/dL (0.2-1.0) Aspartate Amino Transferase (AST) 17 U/L (13-40) Alanine Aminotransferase (ALT) 23 U/L (7-40) Alkaline Phosphatase 53 U/L (46-116) Total Protein 7.0 g/dL (5.7-8.2) Albumin 4.2 g/dL (3.2-4.8) Magnesium Level 2.0 mg/dL (1.6-2.6) Thyroid Stimulating Hormone (TSH) 2.27 uIU/mL (0.55-4.78) Troponin I High Sensitivity 100 ng/L (</=54) Test 03/05/25 21:30 Urine Color Colorless (Yellow) Urine Clarity Clear (Clear) Urine pH 5.5 (5.0-9.0) Urine Specific Cooks 1.014 (1.001-1.035) Urine Protein Trace (Negative) Urine Ketones Negative (Negative) Urine Blood Trace /uL (Negative) Urine Nitrite Negative (Negative) Urine Bilirubin Negative (Negative) Urine Urobilinogen Normal mg/dL (Negative) Urine Leukocyte Esterase Negative /uL (Negative) Urine RBC 1 /hpf (0 - 3) Urine Microscopic WBC < 1 /HPF (0-3) Urine Squamous Epithelial Cells None seen /hpf (<5) Urine Bacteria None seen /hpf (None Seen) Urine Glucose Normal mg/dL (Normal) Other Laboratory Tests 03/08/25 05:46 03/07/25 04:29 Brief Hx & Hospital Course: 64-year-old male with a history of coronary artery disease status post stents by Dr. Estrada 2019 and 2021 and findings of total occlusion right coronary artery and the stent was found patent cardiology consult by Dr. Estrada advised outpatient follow up history of hypertension hyperlipidemia dementia . Patient has a slightly elevated troponin with non ST elevation type 2 [place]. Systolic was more than 220 which has come back to normal with the optimization of blood pressure medications The patient was on hospice and hospice was revoked and family requesting patient to be discharged home on home health Consults/Reason for consult Cardiology Dr. Estrada Operations or Procedures None Condition at Discharge: Fair Final Diagnosis/Problems List Hypertensive emergency: Cardiology consult appreciated NSTEMI likely type 2 secondary to above Ventricular bigeminy Coronary artery disease status post PCI to the OM status post left heart catheterization by Dr. Estrada 2019, total occlusion right coronary artery, stent patent Dr. Estrada advised outpatient follow up Hypertension Dyslipidemia Recently diagnosed dementia Obesity Patient is hospice revoked Per Family wishes the patient is being discharged home on home health Discharge Disposition: Home with Health Services Discharge Instruct/Medications Diet: Cardiac 2g Na,low cholest Activity: Light activity Follow Up/Referral: Follow up with the primary Dr Continue all your previous home medications Medications: Transmitted to pharmacy 39 (Time taken for discharge summary 39 mts) Discharge Statement: "Patient was advised to return to the ER or call 911 if any headaches, dizziness, shortness of breath, chest pain, abdominal pain, bleeding, fevers, or worsening of medical condition. Patient was counseled about treatment plan, medications, possible side effects, patientverbalized understanding. All questions were answered to the best of my ability. This discharge took greater then 30 minutes in planning, reviewing documentation, counseling the patient, and discussing with other team members." ASSESSMENT ASSESSMENT Hospital Course Improved Assessment Hypertensive emergency: Cardiology consult appreciated NSTEMI likely type 2 secondary to above Ventricular bigeminy Coronary artery disease status post PCI to the OM status post left heart catheterization by Dr. Estrada 2019, total occlusion right coronary artery, stent patent Dr. Estrada advised outpatient follow up Hypertension Dyslipidemia Recently diagnosed dementia Obesity Patient is hospice revoked Per Family wishes the patient is being discharged home on home health Date of Service: March 09, 2025 Billing Provider: JESSICA MARIA MD Common Visit Codes: [id number] DISCH DAY >30min JESSICA MARIA MD March 09, 2025 11:39
[2025-03-09 11:40] VITALS: BP 142/74; PULSE 71; RESP 16; TEMP 97.7; O2SAT 97
[2025-03-09] MEDS ORDERED: LOSA-533 PO (11:43)
[2025-03-09] MEDS ORDERED: AMLO1TAB23 PO (11:43)
[2025-03-09] MEDS ORDERED: HYDR50TA47 PO (11:43)
[2025-03-09] MEDS: cloNIDine HCL 0.1 MG TAB PO ONE (12:51)
[2025-03-09 13:00] VITALS: BP 157/72; PULSE 78; RESP 18; TEMP 98.3; O2SAT 96
== END 2025-03-09 13:25 | disposition home health service (06) | DRG 282 ==
LOC: ER 20:37 → EDBD 20:37 → OVERFLOW 03-06 00:34 → TELE-WESTW 03-06 17:06
PROVIDERS: ADMIT Family Medicine; ATTEND Family Medicine
DX: I16.1 Hypertensive emergency (principal); I21.A1 Myocardial infarction type 2; E66.9 Obesity, unspecified; E78.5 Hyperlipidemia, unspecified; I10 Essential (primary) hypertension; F03.90 Unspecified dementia, unspecified severity, without behavioral disturbance, psychotic disturbance, mood disturbance, and anxiety; I25.10 Atherosclerotic heart disease of native coronary artery without angina pectoris; I44.0 Atrioventricular block, first degree; R00.1 Bradycardia, unspecified; R00.8 Other abnormalities of heart beat; Z79.899 Other long term (current) drug therapy; Z82.49 Family history of ischemic heart disease and other diseases of the circulatory system; I25.2 Old myocardial infarction; Z91.128 Patient's intentional underdosing of medication regimen for other reason; Z68.29 Body mass index [BMI] 29.0-29.9, adult; Z95.5 Presence of coronary angioplasty implant and graft
CPT/HCPCS: 36415; 71045; 80048; 80053; 81001; 83735; 84443; 84484; 85025; 93306; 96374; 99291; G0378